=== PATIENT | male | born 1985 | race Caucasian/White ===

== ENCOUNTER 2019-12-20 16:23 | Emergency (ER) | payer BC, SELFPAY ==
--- OUTSIDE RECORDS SUMMARY | 2019-12-20 16:26 | XMS REPORT | Clinical Summary ---
:1985 Author Organization [facility] Address [address] [place] [id number] Care Team Providers Name Role Phone Augusto Dhillon MD Primary Care Provider Allergies No Known Allergies Medications No known medications Active Problems Not on file Social History Tobacco Use Types Packs/Day Years Used Date Never Smoker Sex Assigned at Date Recorded Not on file Job Start Date Occupation Industry Not on file Not on file Not on file Travel History Travel Start Travel End No recent travel history available. Last Filed Vital Signs Not on file Plan of Treatment Not on file Implants Implanted Type Area Planner Device Shelf Model / Identifier Expiration Serial / Date Lot Strip Opthalmic Wide Grvd Tire Sld Yoon 3.5mm - [id number] Surgica l Right: LABTICIAN 08/23/2021 [id number] / Implanted: Qty: 1 on 11/20/2016 by Segundo Jensen MD at [facility] Implants; Eye / Expanders; [id number] Extenders; Surgical Wires Sleeve Rnd Styl 70 Sceleral Bcklng Yoon Strl - [id number] Surgical Right: LABTICIAN 08/23/2021 [id number] / Implanted: Qty: 1 on 11/20/2016 by Segundo Jensen MD at [facility] Implants; Eye / Expanders; [id number] Extenders; Surgical Wires Results Not on fileafter 12/19/2018 Advance Directives For more information, please contact: [phone] Type Date Recorded Patient Renal Medicine Physician Explanati on Advance Directives, Living Will 11/20/2016 1:38 PM and Medical Power of Smudger
--- NOTE | 2019-12-20 17:19 | RAD REPORT ---
EXAM DESCRIPTION: CT - Stone Protocol - 12/20/2019 5:06 pm CLINICAL HISTORY: Abdominal pain. Left flank pain COMPARISON: None. TECHNIQUE: Computed axial tomography of the abdomen pelvis was obtained without oral or IV contrast. Lack of IV and oral contrast limits evaluation of solid organs, bowel, and vessels. Coronal reformat poli images were obtained and reviewed. All CT scans are performed using dose optimization technique as appropriate and may include automated exposure control or mA/KV adjustment according to patient size. FINDINGS: Tiny bilateral renal calculi. Mild to moderate left hydronephrosis. 3.5 4 millimeter calcu broderick mid left ureter. No right hydronephrosis Fatty liver. Spleen, pancreas and adrenals appear grossly normal There is no evidence of diverticulitis. The appendix appears normal IMPRESSION: 3.5 millimeter calculus mid left ureter with mild to moderate left hydronephrosis
[2019-12-20] MEDS ORDERED: MEPERIDINE HCL 50 MG/ML ONE (17:52)
[2019-12-20] MEDS ORDERED: TAMSULOSIN 0.4 MG SR CAP ONE (17:53)
[2019-12-20] MEDS ORDERED: ONDANSETRON 4 MG/2 ML VIAL ONE (17:53)
[2019-12-20] MEDS ORDERED: MAGNESIUM SULFATE 1 gm IVPB 1 GM/100 ML BAG IV ONE (17:53)
[2019-12-20] MEDS ORDERED: KETOROLAC 30 MG/ML INJ ONE (17:53)
[2019-12-20 18:03] LABS: Absolute Lymphocytes (CBC) 1.5 K/uL (0.7-4.9); Basophils % 0.2 % (0-1.3); Hematocrit 41.6 % (39.6-49.0); Lymphocytes % 13.3 % (15.3-44.8); MPV 9.9 fL (7.6-11.3); RBC Red Blood Cell Count 4.72 M/uL (4.33-5.43)
[2019-12-20 18:19] LABS: Albumin 4.3 g/dL (3.4-5.0); Bilirubin Direct 0.2 mg/dL (0-0.2); Potassium 3.6 mmol/L (3.5-5.1); Protein, Total 7.5 g/dL (6.4-8.2)
[2019-12-20 18:24] LABS: Urine Bacteria <20 /HPF (NONE SEEN); Urine Culture Reflex Order NOT NEEDED; Urine RBC >50 /HPF (NONE SEEN)
[2019-12-20 18:24] LABS: Urine Blood 3+ (NEG); Urine Glucose NEGATIVE (NEG); Urine Protein NEGATIVE (NEG); Urine Specific Gravity 1.025 (1.005-1.030); Urine pH 6.5 (5.0-7.0)
--- NOTE | 2019-12-20 18:31 | EDPHYS ---
Physician Documentation [facility] Name: Haris Baker Age: 34 yrs Sex: Male : 1985 Arrival Date: 12/20/2019 Time: 16:25 Bed 2 Private MD: ED Physician Hemal Whitney HPI: 12/19 17:24 This 34 yrs old Male presents to ER via Ambulatory with complaints of Flank rn Pain. 17:24 The patient complains of pain in the left mid back. The pain radiates to the abdomen. rn Onset: The symptoms/episode began/occurred this morning. Modifying factors: The symptoms are alleviated by nothing. the symptoms are aggravated by nothing. Severity of pain: At its worst the pain was moderate in the emergency department the pain has improved. The patient has not experienced similar symptoms in the past. The patient has not recently seen a physician. Historical: - Allergies: 16:32 No Known Allergies; jl7 - Home Meds: 16:32 None [Active]; jl7 - PMHx: 16:32 None; jl7 - PSHx: 16:32 None; jl7 - Immunization history:: Adult Immunizations up to date. - Social history:: Smoking status: Patient denies any tobacco usage or history of. - Family history:: not pertinent. - Hospitalizations: : No recent hospitalization is reported. ROS: 17:24 Constitutional: Negative for fever, chills, and weight loss, Eyes: Negative for injury, rn pain, redness, and discharge, Cardiovascular: Negative for chest pain, palpitations, and edema, Respiratory: Negative for shortness of breath, cough, wheezing, and pleuritic chest pain, Abdomen/GI: Negative for abdominal pain, vomiting, diarrhea, and constipation, Back: + flank pain : Negative for injury, bleeding, discharge, and swelling, MS/Extremity: Negative for injury and deformity, Skin: Negative for injury, rash, and discoloration, Neuro: Negative for headache, weakness, numbness, tingling, and seizure. Exam: 17:24 Constitutional: This is a well developed, well nourished patient who is awake, alert, rn and in no acute distress. Head/Face: Normocephalic, atraumatic. Cardiovascular: Regular rate and rhythm. No pulse deficits. Respiratory: No increased work of breathing, no retractions or nasal flaring. Abdomen/GI: soft, non-tender Back: No spinal tenderness. No costovertebral tenderness. Full range of motion. MS/ Extremity: Pulses equal, no cyanosis. Neurovascular intact. Full, normal range of motion. Equal circumference. Neuro: Awake and alert, GCS 15 Vital Signs: 16:30 BP 142 / 95; Pulse 62; Resp 17; Temp 97; Pulse Ox 99% ; Weight 136.08 kg; Pain 10/10; jl7 17:55 BP 106 / 64; Pulse 57; Resp 18; Pulse Ox 94% on R/A; ph 18:45 BP 104 / 73; Pulse 54; Resp 18; Temp 97.4; Pulse Ox 99% on R/A; Pain 0/10; ph MDM: 16:36 Patient medically screened. rn 18:29 Differential diagnosis: nephrolithiasis, UTI, diverticulitis. Data reviewed: vital rn signs, nurses notes, lab test result(s), radiologic studies, CT scan, and as a result, I will discharge patient. Counseling: I had a detailed discussion with the patient and/or guardian regarding: the historical points, exam findings, and any diagnostic results supporting the discharge/admit diagnosis, lab results, radiology results, the need for outpatient follow up, to return to the emergency department if symptoms worsen or persist or if there are any questions or concerns that arise at home. Response to treatment: the patient's symptoms have markedly improved after treatment, the patient's condition has returned to base line, the patient is now symptom free, and as a result, I will discharge patient. Special discussion: I discussed with the patient/guardian in detail that at this point there is no indication for admission to the hospital. It is understood, however, that if the symptoms persist or worsen the patient needs to return immediately for re-evaluation. ED course: Pt pain down to 0/10, feels "normal", will dc home as likely has passed stone into bladder. All questions answered. Will dc home with prn pain meds/flomax/zofran. Return precautions given and understood. . 12/19 16:47 Order name: Basic Metabolic Panel; Complete Time: 18:21 rn 12/19 16:47 Order name: CBC with Diff; Complete Time: 18:21 rn 12/19 16:47 Order name: Hepatic Function; Complete Time: 18:21 rn 12/19 16:47 Order name: Lipase; Complete Time: 18:21 rn 12/19 16:47 Order name: Urine Microscopic Only; Complete Time: 18:29 rn 12/19 18:00 Order name: Urine Dipstick--Ancillary (enter results); Complete Time: 18:29 bd 12/19 16:47 Order name: IV Saline Lock; Complete Time: 17:54 rn 12/19 16:47 Order name: Labs collected and sent; Complete Time: 17:54 rn 12/19 16:47 Order name: CT Stone Protocol; Complete Time: 17:20 rn 12/19 16:47 Order name: Urine Dipstick-Ancillary (obtain specimen); Complete Time: 17:52 rn Administered Medications: 17:48 Drug: Zofran (Ondansetron) 4 mg Route: IVP; Site: left antecubital; ph 18:42 Follow up: Response: No adverse reaction; Nausea is decreased ph 17:50 Drug: Demerol 25 mg Route: IVP; Site: left antecubital; ph 18:43 Follow up: Response: No adverse reaction; Pain is decreased; RASS: Alert and Calm (0) ph 17:52 Drug: Flomax 0.4 mg Route: PO; ph 18:03 Follow up: Response: No adverse reaction bp 18:43 Follow up: Response: No adverse reaction ph 17:53 Drug: TORadol - Ketorolac 15 mg Route: IVP; Site: left antecubital; ph 18:43 Follow up: Response: No adverse reaction; Pain is decreased ph 17:54 Drug: Magnesium Sulfate 1 grams Route: IVPB; Infused Over: 1 hrs; Site: left ph antecubital; 18:42 Follow up: Response: No adverse reaction; IV Status: Completed infusion ph Disposition: 12/20/19 18:31 Discharged to Home. Impression: Ureterolithiasis, without obstruction. - Condition is Stable. - Discharge Instructions: Kidney Stones, Dietary Guidelines to Help Prevent Kidney Stones. - Prescriptions for Zofran ODT 4 mg Oral tablet,disintegrating - place 1 tablet by TRANSLINGUAL route every 8 hours; 20 tablet. Ibuprofen 800 mg Oral Tablet - take 1 tablet by ORAL route every 12 hours As needed take with food; 20 tablet. Tylenol- Codeine #3 300-30 mg Oral Tablet - take 1 tablet by ORAL route every 6 hours As needed; 15 tablet. Flomax 0.4 mg Oral Capsule, Sust. Release 24 hr - take 1 capsule by ORAL route once daily Stop taking once you feel like you have passed your kidney stone, can cause lightheadedness and low blood pressure.; 15 capsule. - Medication Reconciliation Form, Thank You Letter, Antibiotic Education, Prescription Opioid Use form. - Follow up: Private Physician; When: As needed; Reason: Recheck today's complaints, Re-evaluation by your physician. - Problem is new. - Symptoms have improved. Signatures: Dispatcher [employer] EDHemal Alexis MD MD rn Melania Love RN RN ph Carlos Núñez RN RN jl7 Rocael Segura RN bp Corrections: (The following items were deleted from the chart) 18:45 18:31 12/20/2019 18:31 Discharged to Home. Impression: Ureterolithiasis, without ph obstruction. Condition is Stable. Forms are Medication Reconciliation Form, Thank You Letter, Antibiotic Education, Prescription Opioid Use. Follow up: Private Physician; When: As needed; Reason: Recheck today's complaints, Re-evaluation by your physician. Problem is new. Symptoms have improved. rn
--- NOTE | 2019-12-20 18:31 | ER ---
Nurse's Notes [facility] Name: Haris Baker Age: 34 yrs Sex: Male : 1985 Arrival Date: 12/20/2019 Time: 16:25 Bed 2 Private MD: Diagnosis: Ureterolithiasis, without obstruction Presentation: 12/19 16:30 Chief complaint: Patient states: Intermittent Left flank pain since this morning, jl7 radiates around to the front; reports intermittent nausea. Coronavirus screen: Client denies travel out of the [place] in the last 14 days. At this time, the client does not indicate any symptoms associated with coronavirus-19. Ebola Screen: No symptoms or risks identified at this time. Initial Sepsis Screen: Does the patient meet any 2 criteria? No. Patient's initial sepsis screen is negative. Does the patient have a suspected source of infection? No. Patient's initial sepsis screen is negative. Risk Assessment: Do you want to hurt yourself or someone else? Patient reports no desire to harm self or others. Onset of symptoms was December 20, 2019. Care prior to arrival: None. 16:30 Method Of Arrival: Ambulatory jl7 16:30 Acuity: ABHISHEK 3 jl7 Triage Assessment: 16:32 General: Appears in no apparent distress. uncomfortable, Behavior is calm, cooperative, jl7 appropriate for age. Pain: Complains of pain in left flank Pain currently is 10 out of 10 on a pain scale. Historical: - Allergies: 16:32 No Known Allergies; jl7 - Home Meds: 16:32 None [Active]; jl7 - PMHx: 16:32 None; jl7 - PSHx: 16:32 None; jl7 - Immunization history:: Adult Immunizations up to date. - Social history:: Smoking status: Patient denies any tobacco usage or history of. - Family history:: not pertinent. - Hospitalizations: : No recent hospitalization is reported. Screenin:28 Abuse screen: Denies threats or abuse. Denies injuries from another. Nutritional bp screening: No deficits noted. Tuberculosis screening: No symptoms or risk factors identified. Fall Risk None identified. Assessment: 16:35 General: SEE TRIAGE NOTE. bp 17:28 Reassessment: PT RETURNED FROM CT. STONE NOTED BY RADIOLOGIST ON SCAN. bp 18:44 Reassessment: Patient appears in no apparent distress at this time. Patient and/or ph family updated on plan of care and expected duration. Pain level reassessed. Patient is alert, oriented x 3, equal unlabored respirations, skin warm/dry/pink. Pt d/c home w/ prescriptions Patient states feeling better. Patient states symptoms have improved. Vital Signs: 16:30 BP 142 / 95; Pulse 62; Resp 17; Temp 97; Pulse Ox 99% ; Weight 136.08 kg; Pain 10/10; jl7 17:55 BP 106 / 64; Pulse 57; Resp 18; Pulse Ox 94% on R/A; ph 18:45 BP 104 / 73; Pulse 54; Resp 18; Temp 97.4; Pulse Ox 99% on R/A; Pain 0/10; ph ED Course: 16:25 Patient arrived in ED. as 16:32 Triage completed. jl7 16:32 Arm band placed on right wrist. jl7 16:36 Hemal Whitney MD is Attending Physician. rn 16:49 Rocael Segura RN is Primary Nurse. bp 17:07 CT Stone Protocol In Process Unspecified. EDMS 17:28 Patient has correct armband on for positive identification. Bed in low position. Call bp light in reach. Side rails up X2. 17:54 Initial lab(s) drawn, by ED staff, sent to lab. Inserted saline lock: 22 gauge in left ph antecubital area, using aseptic technique. Blood collected. 18:43 No provider procedures requiring assistance completed. IV discontinued, intact, ph bleeding controlled, No redness/swelling at site. Pressure dressing applied. Administered Medications: 17:48 Drug: Zofran (Ondansetron) 4 mg Route: IVP; Site: left antecubital; ph 18:42 Follow up: Response: No adverse reaction; Nausea is decreased ph 17:50 Drug: Demerol 25 mg Route: IVP; Site: left antecubital; ph 18:43 Follow up: Response: No adverse reaction; Pain is decreased; RASS: Alert and Calm (0) ph 17:52 Drug: Flomax 0.4 mg Route: PO; ph 18:03 Follow up: Response: No adverse reaction bp 18:43 Follow up: Response: No adverse reaction ph 17:53 Drug: TORadol - Ketorolac 15 mg Route: IVP; Site: left antecubital; ph 18:43 Follow up: Response: No adverse reaction; Pain is decreased ph 17:54 Drug: Magnesium Sulfate 1 grams Route: IVPB; Infused Over: 1 hrs; Site: left ph antecubital; 18:42 Follow up: Response: No adverse reaction; IV Status: Completed infusion ph Outcome: 18:31 Discharge ordered by . rn 18:44 Discharged to home ambulatory. ph 18:44 Condition: improved 18:44 Discharge instructions given to patient, Instructed on discharge instructions, follow up and referral plans. medication usage, Demonstrated understanding of instructions, follow-up care, medications, Prescriptions given X 4. 18:45 Patient left the ED. ph Signatures: Dispatcher [employer] EDMS Neris Nunez Roman, MD MD rn Hall, Patricia, RN RN Carlos Núñez RN RN [facility] Rocael Segura RN RN bp
[2019-12-25 15:06] VITALS: BP 104/73; TEMP 97.4; O2SAT 99
== END 2019-12-20 18:45 | disposition home or self-care (01) ==
LOC: ER 16:23
DX: N20.1 Calculus of ureter (principal)
CPT/HCPCS: 96365; 85025; 80048; 36415; 80076; 83690; 76377; 74176; 96375; 99284; J3475; J2175; J2405; 81003; 81015

== ENCOUNTER 2024-05-13 02:35 | Emergency (ER) | payer BC ==
[2024-05-13] MEDS ORDERED: ONDANSETRON 4 MG/2 ML VIAL ONE ×2 (03:21→04:05)
[2024-05-13] MEDS ORDERED: LIDOCAINE 1% MPF 5 ML VIAL ONE (03:21)
[2024-05-13] MEDS ORDERED: NA CHLORIDE 0.9% 1,000 ML ONE (03:22)
[2024-05-13] MEDS ORDERED: TDAP (DIPHTH,PERTUSS(ACELL),TET VAC) 0.5 ML VIAL IMVAC ONE (03:22)
[2024-05-13 03:34] LABS: Absolute Lymphocytes (CBC) 0.9 K/uL (0.7-4.9); Absolute Monocytes 0.5 K/uL (0.1-1.3); Absolute Neutrophil 8.1 K/uL (1.8-8.0); Basophils % 0.2 % (0-1.3); Eosinophils % 0.2 % (0-4.4); Hematocrit 40.5 % (39.6-49.0); Hemoglobin 14.4 g/dL (13.6-17.9); Lymphocytes % 9.7 % (15.3-44.8); MCH 31.6 pg (27.0-35.0); MCHC 35.5 g/dL (32.0-36.0); MCV 88.9 fL (80-100); MPV 8.7 fL (7.6-11.3); Monocytes % 5.1 % (3.3-12.3); Neutrophils % 84.8 % (41.7-73.7); Platelets 183 thou/uL (152-406); RBC Red Blood Cell Count 4.56 M/uL (4.33-5.43); Red Cell Distribution Width 13.5 % (12.1-15.2)
[2024-05-13 03:50] LABS: Albumin 3.7 g/dL (3.4-5.0); Albumin/Globulin Ratio 1.2 (1.1-1.8); Anion Gap 15.1 mEq/L (5.0-15.0); Bilirubin Direct 0.2 mg/dL (0-0.2); Bilirubin Indirect, Calculated 0.8 mg/dL (0.2-0.8); Globulin 3.2 g/dL (2.3-3.5); Protein, Total 6.9 g/dL (6.4-8.2); Troponin High Sensitivity 3.3 pg/mL (<58.9)
[2024-05-13 04:02] LABS: Potassium 4.1 mEq/L (3.5-5.1)
--- NOTE | 2024-05-13 04:15 | RAD REPORT ---
EXAM DESCRIPTION: CT of the head without contrast and CT of the cervical spine without contrast CLINICAL HISTORY: TRAUMA COMPARISON: None available TECHNIQUE: Axial CT of the head and cervical spine without contrast. This exam was performed accordin g to our departmental dose-optimization program, which includes automated exposure control, adjustment of the mA and/or kV according to patient size and/or use of iterative reconstruction techn ique. FINDINGS: CT HEAD: No acute intracranial hemorrhage identified. No mass, mass effect, midline shift, or abnormal extra-a xial fluid collection. No CT evidence of acute ischemic change identified, however, MRI is more sensitive in the assessment of acute ischemia. Ventricular system and sulcal spaces are normal in s ize and morphology. Basilar cisterns are patent. Postsurgical changes right upper lobe. No skull fracture identified. The visualized paranasal sinus es and the mastoid air cells are relatively well aerated. CT C-SPINE: Alignment of the cervical spine is maintained without evidence of subluxation. The atlantoaxial, at lantodental, and occipitoatlantal intervals are preserved. No fracture identified. Vertebral body height preserved. Prevertebral soft tissues are unremarkable. Intervertebral disc height is preserved. No significant narrowing of the neural foramina or spinal ca nal. Visualized skull base is intact. No fracture of the visualized facial bones. Visualized mastoid air cells and paranasal sinuses are well aerated. Subcentimeter left thyroid nodule. No follow-up imaging is recommended. No cervical lymphadenopathy . No pneumothorax in the visualized lung apices. No acute fracture of the visualized ribs or clavicles. IMPRESSION: 1. No CT evidence of acute intracranial abnormality. 2. No acute fracture or subluxation of the cervical spine. Electronically signed by: Elle Talavera MD 05/13/2024 04:12 AM [facility] Due to temporary technical issues with the [employer] reporting system, reports are being elise d by the in-house radiologist without review as a courtesy to ensure prompt reporting the interpreting radiologist is fully responsible for the content of the report. Transcribed Date/Time: 05/13/2024 4:15 AM
[2024-05-13] MEDS ORDERED: MECLIZINE HCL 12.5 MG TAB ONE (04:46)
--- NOTE | 2024-05-13 05:20 | ER ---
Nurse's Notes [facility] Name: Haris Baker Age: 38 yrs Sex: Male : 1985 Arrival Date: 05/13/2024 Time: 02:35 Bed 5 Private MD: Diagnosis: syncope;Laceration without foreign body of scalp Presentation: 05/13 03:02 Chief complaint: Patient states: states he had woken up from a cramp, went to get water al5 and passed out. patient is unknown how long of LOC. patient c/o nausea and headache, denies cp, sob, abdominal pain, neck pain. Coronavirus screen: At this time, the client does not indicate any symptoms associated with coronavirus-19. Ebola Screen: No symptoms or risks identified at this time. Complicating Factors: There are no complicating factors for this patient. Initial Sepsis Screen: Does the patient meet any 2 criteria? HR > 90 bpm. No. Patient's initial sepsis screen is negative. Does the patient have a suspected source of infection? No. Patient's initial sepsis screen is negative. Risk Assessment: Do you want to hurt yourself or someone else? Patient reports no desire to harm self or others. Onset of symptoms was May 13, 2024. 03:02 Method Of Arrival: Ambulatory al5 03:02 Acuity: ABHISHEK 3 al5 Triage Assessment: 03:08 General: Appears in no apparent distress. Behavior is calm, cooperative. Pain: al5 Complains of pain in head and scalp Pain currently is 3 out of 10 on a pain scale. EENT: No signs and/or symptoms were reported regarding the EENT system. Neuro: Level of Consciousness is awake, alert, obeys commands, Oriented to person, place, time, situation. Cardiovascular: Capillary refill < 3 seconds Patient's skin is warm and dry. Respiratory: Airway is patent Respiratory effort is even, unlabored, Respiratory pattern is regular, symmetrical. GI: Abdomen is flat, non-distended, Reports nausea. : No signs and/or symptoms were reported regarding the genitourinary system. Derm: Skin is intact, is healthy with good turgor, Skin is pink, warm \T\ dry. normal, laceration to back of scalp. Musculoskeletal: No signs and/or symptoms reported regarding the musculoskeletal system. Injury Description: Laceration sustained to scalp is 0.5 to 2.5 cm long, small bleeding is bleeding a small amount. Historical: - Allergies: 03:07 No Known Allergies; al5 - PMHx: 03:07 detached retina; kidney stones; al5 - PSHx: 03:07 retina repair; lasik; al5 - Immunization history:: Adult Immunizations up to date, Last tetanus immunization: not up to date. - Infectious Disease History:: Denies. - Social history:: Smoking status: Patient denies any tobacco usage or history of. - Family history:: not pertinent. Screenin:10 [facility] ED Fall Risk Assessment (Adult) History of falling in the last 3 months, al5 including since admission Yes- physiologic fall (2 pts) Confusion or Disorientation No (0 pts) Intoxicated or Sedated No (0 pts) Impaired Gait No (0 pts) Mobility Assist Device Used No (0 pt) Altered Elimination No (0 pt) Score/Fall Risk Level 0 - 2 = Low Risk Oriented to surroundings, Maintained a safe environment, Hourly rounding (assess needs \T\ fall precautionary measures) done. Abuse screen: Denies threats or abuse. Denies injuries from another. Nutritional screening: No deficits noted. Tuberculosis screening: No symptoms or risk factors identified. Assessment: 03:10 Reassessment: see triage assessment. al5 05:00 Reassessment: Patient and/or family updated on plan of care and expected duration. Pain ha1 level reassessed. Patient is alert, oriented x 3, equal unlabored respirations, skin warm/dry/pink. Patient states feeling better. Patient states symptoms have improved. Vital Signs: 03:00 BP 115 / 78; Pulse 75; Resp 18; Pulse Ox 100% on R/A; al5 03:02 BP 131 / 76; Pulse 98; Resp 16; Temp 97.6; Pulse Ox 100% ; Weight 88.45 kg; Height 6 al5 ft. 1 in. ; Pain 3/10; 03:15 BP 116 / 70; Pulse 66; Resp 15; Pulse Ox 100% on R/A; al5 03:30 BP 120 / 73; Pulse 61; Resp 16; Pulse Ox 100% on R/A; al5 03:45 BP 114 / 74; Pulse 67; Resp 17; Pulse Ox 100% on R/A; al5 04:00 BP 103 / 67; Pulse 53; Resp 15; Pulse Ox 100% on R/A; al5 05:00 BP 120 / 75; Pulse 59; Resp 17 S; Pulse Ox 100% on R/A; ha1 03:02 Body Mass Index 25.73 (88.45 kg, 185.42 cm) al5 03:02 Pain Scale: Adult al5 ED Course: 02:51 Patient arrived in ED. gm2 02:51 Alfonso Morris MD is Attending Physician. rt 03:02 Jeanie Rees, DIEGO is Primary Nurse. al5 03:07 Triage completed. al5 03:10 Arm band placed on right wrist. Patient placed in the treatment room, on a stretcher, al5 on pulse oximetry. 03:10 Patient has correct armband on for positive identification. Bed in low position. Call al5 light in reach. Side rails up X 1. Provided Education on: plan of care. 03:14 EKG done, by ED staff. hw 03:28 Inserted saline lock: 20 gauge in right antecubital area, using aseptic technique. al5 Blood collected. Flushed with 10 mL NS. 03:35 CT Head C Spine In Process Unspecified. EDMS 04:10 Assist provider with laceration repair on scalp that was between 2.6 to 7.5 cm using al5 amy. Set up tray. Performed by Alfonso Morris MD Dressed with Neosporin, Patient tolerated well. 05:27 IV discontinued, intact, bleeding controlled, No redness/swelling at site. Pressure al5 dressing applied. Administered Medications: 03:27 Drug: Boostrix Tdap IM 0.5 ml IM once; as a single dose Route: IM; Site: right deltoid; al5 04:09 Follow up: Response: (VIS) Vaccine information sheet provided today. Questions and/or al5 concerns addressed. VIS edition date: Nov 29, 2020.; No adverse reaction 03:27 Drug: Ondansetron IVP 4 mg IVP once; over 2 minutes Route: IVP; Site: right antecubital;al5 04:09 Follow up: Response: No adverse reaction al5 03:44 Drug: NS 0.9% IV 1000 ml IV at 1 bolus Per protocol; to be given as a bolus over 60 al5 minutes Route: IV; Rate: 1 bolus; Site: right antecubital; 05:27 Follow up: Response: No adverse reaction; IV Status: Completed infusion; IV Intake: ha1 1000ml 04:09 Drug: Lidocaine Infiltration (1 %) 5 ml 5 ml Infiltration once; to bedside {Note: al5 administered by dr morris.} Volume: 5 ml; Route: Infiltration; 04:30 Follow up: Response: No adverse reaction ha1 04:10 Drug: Ondansetron IVP 4 mg IVP once; over 2 minutes Route: IVP; Site: right antecubital;al5 04:49 Follow up: Response: No adverse reaction; No change in condition al5 04:49 Drug: Meclizine PO 50 mg PO once Route: PO; al5 05:27 Follow up: Response: No adverse reaction; Marked relief of symptoms ha1 Medication: 03:10 VIS not applicable for this client. al5 Intake: 05:27 IV: 1000ml; Total: 1000ml. ha1 Outcome: 05:19 Discharge ordered by . rt 05:27 Condition: stable ha1 05:27 Discharged to home ambulatory, with family, with significant other, al5 05:27 Discharge instructions given to patient, Instructed on discharge instructions, follow up and referral plans. medication usage, Demonstrated understanding of instructions, follow-up care, medications, Prescriptions given X 1, 05:28 Patient left the ED. al5 Signatures: Dispatcher [employer] EDMS Mirtha Perrin RN RN ha1 Alfonso Morris MD MD rt Jovanna Henry 2 Jeanie Rees RN RN al5 Beth Enciso
--- NOTE | 2024-05-13 05:20 | EDPHYS ---
Physician Documentation [facility] Name: Haris Baker Age: 38 yrs Sex: Male : 1985 Arrival Date: 05/13/2024 Time: 02:35 Bed 5 Private MD: ED Physician Alfonso Morris HPI: 05/13 04:36 This 38 yrs old Male presents to ER via Ambulatory with complaints of Laceration To rt Head, Fall Injury. 04:36 Patient presents to the ED with a syncopal event. The patient was walking, rt significantly nauseated, falling hitting the back of his head causing a laceration. Unclear how the patient was unconscious for. To have returned to baseline mental status. Did report having dizziness and nausea at that time that have improved. Patient is now ambulatory without difficulty. Denies other acute complaints at this time, symptoms are moderate in severity, no other aggravating or elevating factors.. Historical: - Allergies: 03:07 No Known Allergies; al5 - PMHx: 03:07 detached retina; kidney stones; al5 - PSHx: 03:07 retina repair; lasik; al5 - Immunization history:: Adult Immunizations up to date, Last tetanus immunization: not up to date. - Infectious Disease History:: Denies. - Social history:: Smoking status: Patient denies any tobacco usage or history of. - Family history:: not pertinent. ROS: 04:36 Constitutional: Negative for fever, chills, and weight loss, Cardiovascular: Negative rt for chest pain, palpitations, and edema, Respiratory: Negative for shortness of breath, cough, wheezing, and pleuritic chest pain, MS/Extremity: Negative for injury and deformity, Psych: Negative for depression, anxiety, suicide ideation, homicidal ideation, and hallucinations, 04:36 Abdomen/GI: Positive for nausea, Negative for abdominal pain, 04:36 Neuro: Positive for loss of consciousness, syncope, Exam: 04:36 Constitutional: This is a well developed, well nourished patient who is awake, alert, rt and in no acute distress. Neck: Trachea midline, no thyromegaly or masses palpated, and no cervical lymphadenopathy. Supple, full range of motion without nuchal rigidity, or vertebral point tenderness. No Meningismus. Chest/axilla: Normal chest wall appearance and motion. Nontender with no deformity. No lesions are appreciated. Cardiovascular: Regular rate and rhythm with a normal S1 and S2. No gallops, murmurs, or rubs. Normal PMI, no JVD. No pulse deficits. Respiratory: Lungs have equal breath sounds bilaterally, clear to auscultation and percussion. No rales, rhonchi or wheezes noted. No increased work of breathing, no retractions or nasal flaring. Abdomen/GI: Soft, non-tender, with normal bowel sounds. No distension or tympany. No guarding or rebound. No evidence of tenderness throughout. Skin: Warm, dry with normal turgor. Normal color with no rashes, no lesions, and no evidence of cellulitis. MS/ Extremity: Pulses equal, no cyanosis. Neurovascular intact. Full, normal range of motion. Neuro: Awake and alert, GCS 15, oriented to person, place, time, and situation. Cranial nerves II-XII grossly intact. Motor strength 5/5 in all extremities. Sensory grossly intact. Cerebellar exam normal. Normal gait. 04:36 Head/face: 3 cm laceration to the posterior scalp, no other external signs of trauma, patient is normocephalic. 04:36 ECG was reviewed by the Attending Physician. Vital Signs: 03:00 BP 115 / 78; Pulse 75; Resp 18; Pulse Ox 100% on R/A; al5 03:02 BP 131 / 76; Pulse 98; Resp 16; Temp 97.6; Pulse Ox 100% ; Weight 88.45 kg; Height 6 al5 ft. 1 in. ; Pain 3/10; 03:15 BP 116 / 70; Pulse 66; Resp 15; Pulse Ox 100% on R/A; al5 03:30 BP 120 / 73; Pulse 61; Resp 16; Pulse Ox 100% on R/A; al5 03:45 BP 114 / 74; Pulse 67; Resp 17; Pulse Ox 100% on R/A; al5 04:00 BP 103 / 67; Pulse 53; Resp 15; Pulse Ox 100% on R/A; al5 05:00 BP 120 / 75; Pulse 59; Resp 17 S; Pulse Ox 100% on R/A; ha1 03:02 Body Mass Index 25.73 (88.45 kg, 185.42 cm) al5 03:02 Pain Scale: Adult al5 Laceration: 04:36 Wound Repair of 3cm ( 1.2in ) subcutaneous laceration to scalp. Linear shaped.. Distal rt neuro/vascular/tendon intact. Anesthesia: Local anesthetic administered with 2 mls of 1% lidocaine. Wound prep: Copious irrigation. Skin closed with 4 staple Nikunj using staple gun. Patient tolerated well. MDM: 02:54 Medical Screening Exam initiated rt 05:22 Differential diagnosis: Vasovagal syncope, dysrhythmia, anemia, electrolyte rt disturbance, laceration, intracranial hemorrhage. Data reviewed: vital signs, nurses notes, lab test result(s), EKG, radiologic studies. Consideration of Admission/Observation Escalation of care including admission/observation considered. Stable vital signs, unremarkable EKG, labs, no indications for admission at this time.. I considered the following discharge prescriptions or medication management in the emergency department Medications were administered in the Emergency Department. See MAR. Independent interpretation of the following test(s) in the Emergency Department CT Scan: My interpretation is No intracranial hemorrhage syndrome interpretation of CT scan images. Counseling: I had a detailed discussion with the patient and/or guardian regarding the historical points, exam findings, and any diagnostic results supporting the discharge/admit diagnosis, lab results, radiology results, the need for outpatient follow up, Informed patient of incidental finding of thyroid nodule, informed patient that it was benign-appearing and radiologist recommended no further imaging studies. Response to treatment: the patient's symptoms have markedly improved after treatment. 05/13 03:03 Order name: Basic Metabolic Panel; Complete Time: 04:11 rt 05/13 03:03 Order name: CBC with Diff; Complete Time: 04:11 rt 05/13 03:03 Order name: LFT's; Complete Time: 04:11 rt 05/13 03:03 Order name: Troponin HS; Complete Time: 04:11 rt 05/13 03:03 Order name: CT Head C Spine rt 05/13 03:03 Order name: Cardiac monitoring; Complete Time: 03:19 rt 05/13 03:03 Order name: EKG - Nurse/Tech; Complete Time: 03:14 rt 05/13 03:03 Order name: IV Saline Lock; Complete Time: 03:19 rt 05/13 03:03 Order name: Labs collected and sent; Complete Time: 03:19 rt 05/13 03:03 Order name: O2 Per Protocol; Complete Time: 03:19 rt 05/13 03:03 Order name: O2 Sat Monitoring; Complete Time: 03:19 rt 05/13 03:03 Order name: Wound Care; Complete Time: 04:10 rt EC:36 Rate is 77 beats/min. Rhythm is regular, Normal Sinus Rhythm with No ectopy. QRS [place] rt is Normal. MD interval is normal. QRS interval is normal. QT interval is normal. No Q waves. T waves are Normal. No ST changes noted. Interpreted by me. Administered Medications: 03:27 Drug: Boostrix Tdap IM 0.5 ml IM once; as a single dose Route: IM; Site: right deltoid; al5 04:09 Follow up: Response: (VIS) Vaccine information sheet provided today. Questions and/or al5 concerns addressed. VIS edition date: Nov 29, 2020.; No adverse reaction 03:27 Drug: Ondansetron IVP 4 mg IVP once; over 2 minutes Route: IVP; Site: right antecubital;al5 04:09 Follow up: Response: No adverse reaction al5 03:44 Drug: NS 0.9% IV 1000 ml IV at 1 bolus Per protocol; to be given as a bolus over 60 al5 minutes Route: IV; Rate: 1 bolus; Site: right antecubital; 05:27 Follow up: Response: No adverse reaction; IV Status: Completed infusion; IV Intake: ha1 1000ml 04:09 Drug: Lidocaine Infiltration (1 %) 5 ml 5 ml Infiltration once; to bedside {Note: al5 administered by dr morris.} Volume: 5 ml; Route: Infiltration; 04:30 Follow up: Response: No adverse reaction ha1 04:10 Drug: Ondansetron IVP 4 mg IVP once; over 2 minutes Route: IVP; Site: right antecubital;al5 04:49 Follow up: Response: No adverse reaction; No change in condition al5 04:49 Drug: Meclizine PO 50 mg PO once Route: PO; al5 05:27 Follow up: Response: No adverse reaction; Marked relief of symptoms ha1 Disposition Summary: 05/13/24 05:19 Discharge Ordered Notes: Location: Home rt Problem: new rt Symptoms: have improved rt Condition: Stable rt Diagnosis - syncope rt - Laceration without foreign body of scalp rt Followup: rt - With: Private Physician - When: 10 - 14 days - Reason: Staple/Suture removal Discharge Instructions: - Discharge Summary Sheet rt - Laceration Care, Adult rt - Syncope rt Forms: - Medication Reconciliation Form rt - Antibiotic Education rt - Prescription Opioid Use rt - Patient Portal Instructions rt - Leadership Thank You Letter rt Prescriptions: - Meclizine 25 mg Oral Tablet - take 1 tablet ORAL route every 8 hours As needed; 30 tablet; Refills: 0, rt Product Selection Permitted Signatures: Dispatcher [employer] EDMS Alfonso Morris MD MD rt Jeanie Rees RN RN al5 Mirtha Perrin RN ha1 Corrections: (The following items were deleted from the chart) 03:04 03:04 BASIC METABOLIC PANEL+C.LAB.BRZ ordered. EDMS EDMS 03:04 03:04 CBC+H.LAB.BRZ ordered. EDMS EDMS 03:04 03:04 HEPATIC FUNCTION+C.LAB.BRZ ordered. EDMS EDMS 03:04 03:04 Troponin High Sensitivity+C.LAB.BRZ ordered. EDMS EDMS 03:04 03:04 Head C Spine MPR Wo Con+CT.RAD.BRZ ordered. EDMS EDMS
[2024-05-13 05:39] VITALS: O2SAT 100
[2024-05-13 05:40] VITALS: TEMP 97.6
[2024-05-13 05:46] VITALS: BP 120/75
== END 2024-05-13 05:28 | disposition home or self-care (01) ==
LOC: ER 02:35
DX: S01.01XA Laceration without foreign body of scalp, initial encounter (principal); W19.XXXA Unspecified fall, initial encounter; R55 Syncope and collapse
CPT/HCPCS: 96361; 85025; 80048; 36415; 80076; 84484; 70450; 72125; 96372; 96374; 99285; 12002; J8597; J2003; J2405 ×2; J7030